=== PATIENT | female | born 1970 | race Caucasian/White ===

== ENCOUNTER → 2019-09-20 15:38 | Outpatient (CLI) | payer OTHER, SELFPAY ==
--- NOTE | 2019-09-20 | DI.MRI.S_ITS ---
PROCEDURE: MR KNEE RT WO CON INDICATIONS: Right knee pain and instability TECHNIQUE: Noncontrast sagittal PD fast spin echo and T2 fast spin echo with fat saturation, sagittal 3-D FLASH with fat saturation; coronal T1 spin echo and PD fast spin echo with fat saturation, and axial PD fast spin echo with fat saturation through the knee. COMPARISON: None. FINDINGS: Image quality: Excellent. Menisci: Medial meniscus intact, although mild fraying of the body. No discrete tear by strict criteria. Lateral meniscus intact. Cruciate ligaments: Anterior cruciate ligament appears intact. Posterior cruciate ligament appears intact. Medial structures: The medial collateral ligament appears intact. Semimembranosus tendon appears intact. Visualized portions of the pes anserinus tendons appear normal. No abnormal bursal fluid. Lateral structures: The lateral collateral ligament intact. Biceps femoris tendon appears intact. Popliteus tendon grossly unremarkable. Iliotibial band appears intact. Anterior structures: Quadriceps tendon intact. Medial and lateral patellofemoral ligaments intact. There is mild patellar tendinopathy. Prepatellar and superficial infrapatellar subcutaneous edema/fluid. Bones and cartilage: No focal marrow contusion or discrete low signal fracture line. Within the medial compartment, diffuse surface fraying of the femoral and tibial cartilage without focal defect Within the lateral compartment, diffuse surface fraying of the femoral and tibial cartilage without focal defect Within the patellofemoral compartment, diffuse partial thickness loss of cartilage overlying the lateral patellar facet in addition to subchondral marrow edema and cystic change. Femoral trochlear cartilage appears grossly intact Joint space: Small joint effusion. The No Rene's cyst. No specific evidence of intra-articular loose body. IMPRESSION: Mild patellar tendinopathy with adjacent soft tissue edema. Degenerative joint disease as above, most pronounced in the patellofemoral compartment where there is subchondral marrow cystic change and edema Small joint effusion. Dictated by: Elias Montes De Oca M.D. on 09/20/2019 at 16:48 Approved by: Elias Montes De Oca M.D. on 09/20/2019 at 16:58
--- NOTE | 2019-09-20 | DI.MRI.S_ITS ---
PROCEDURE: MR KNEE LT WO CON INDICATIONS: Left knee pain and instability TECHNIQUE: Noncontrast sagittal PD fast spin echo and T2 fast spin echo with fat saturation, sagittal 3-D FLASH with fat saturation; coronal T1 spin echo and PD fast spin echo with fat saturation, and axial PD fast spin echo with fat saturation through the knee. COMPARISON: [facility], MR, MR KNEE RT WO CON, 09/20/2019, 15:51. FINDINGS: Image quality: Excellent. Menisci: Medial meniscus intact. Lateral meniscus intact. Cruciate ligaments: Anterior cruciate ligament appears intact although there is mild intrasubstance T2 hyperintensity and thickening raising possibility of low-grade sprain (age indeterminate), versus mucoid degeneration. Posterior cruciate ligament appears intact. Medial structures: The medial collateral ligament appears intact. Semimembranosus tendon appears intact. Mild edema adjacent to the pes anserinus tendons. No abnormal bursal fluid. Lateral structures: The lateral collateral ligament intact. Biceps femoris tendon appears intact. Popliteus tendon grossly unremarkable. Iliotibial band appears intact. Anterior structures: Quadriceps tendon intact. Medial and lateral patellofemoral ligaments intact. Patellar tendon appears intact. Hoffa's fat pad unremarkable. Bones and cartilage: No focal marrow contusion or discrete low signal fracture line. Within the medial compartment, mild diffuse surface fraying of the femoral and tibial articular cartilage without focal defect. Within the lateral compartment, intrasubstance signal change of the central tibial cartilage and mild diffuse surface fraying of the femoral cartilage. No focal defect Within the patellofemoral compartment, with full-thickness fissuring and partial-thickness loss of the cartilage overlying the lateral patellar facet. There is underlying subchondral marrow edema and cystic change. Femoral trochlear cartilage appears grossly intact. Joint space: Small joint effusion. No Rene's cyst. No specific evidence of intra-articular loose body. IMPRESSION: Mild thickening and signal changes of the ACL which appears grossly intact although could reflect mucoid degeneration versus age-indeterminate mild sprain. Patellofemoral chondromalacia. Small joint effusion Mild pes anserinus insertional tendinopathy Dictated by: Elias Montes De Oca M.D. on 09/20/2019 at 16:58 Approved by: Elias Montes De Oca M.D. on 09/20/2019 at 17:11
== END ==
PROVIDERS: Referring Provider Family Medicine; Visit Provider Family Medicine
DX: M25.561 Pain in right knee (principal); M25.562 Pain in left knee; M23.51 Chronic instability of knee, right knee; M23.52 Chronic instability of knee, left knee; M17.11 Unilateral primary osteoarthritis, right knee; M67.961 Unspecified disorder of synovium and tendon, right lower leg; M25.461 Effusion, right knee; M25.462 Effusion, left knee; M22.42 Chondromalacia patellae, left knee
CPT/HCPCS: 73721

== ENCOUNTER → 2020-06-05 14:06 | Outpatient (CLI) | payer OTHER, SELFPAY ==
--- NOTE | 2020-06-05 | DI.MG.S_ITS ---
BILATERAL DIGITAL SCREENING MAMMOGRAM 3D/2D WITH CAD: 06/05/2020 CLINICAL: Routine screening. Family history of breast cancer. Comparison is made to exams dated: 09/28/2018 mammogram, 09/11/2017 mammogram, and 08/15/2017 mammogram - [facility]. The tissue of both breasts is heterogeneously dense. This may lower the sensitivity of mammography. Current study was also evaluated with a Computer Aided Detection (CAD) system. No significant masses, calcifications, or other findings are seen in either breast. There has been no significant interval change. IMPRESSION: NEGATIVE There is no mammographic evidence of malignancy. A 1 year screening mammogram is recommended. This exam was interpreted at Station ID: [id number]. NOTE: For mammograms, a report in lay terms will be sent to the patient. Approximately 15% of breast malignancies will not be visualized mammographically. In the management of a palpable breast mass, a negative mammogram must not discourage biopsy of a clinically suspicious lesion. Electronically Signed By: Rosario mohr/esvin:06/09/2020 10:11:47 letter sent: Normal Exam ACR BI-RADS Category 1: Negative 3341F
== END ==
PROVIDERS: PCP Family Medicine; Referring Provider Family Medicine; Visit Provider Family Medicine
DX: Z12.31 Encounter for screening mammogram for malignant neoplasm of breast (principal); Z80.3 Family history of malignant neoplasm of breast
CPT/HCPCS: 77063; 77067

== ENCOUNTER → 2020-12-04 19:04 | Outpatient (CLI) | payer OTHER, SELFPAY ==
--- NOTE | 2020-12-04 | DI.MRI.S_ITS ---
PROCEDURE: MR HEAD/BRAIN WO CON INDICATIONS: Migraine, unspecified, not intractable, without st TECHNIQUE: Noncontrast axial T1 spin echo, axial T2 fast spin echo, sagittal and axial FLAIR, coronal T2 fast spin echo, axial gradient echo, axial diffusion and ADC through the brain. COMPARISON: None. FINDINGS: Image quality: Excellent. CSF Spaces: Basal cisterns are patent. No extra-axial fluid collections. Ventricles are normal in size and shape. Brain: No intracranial masses or hemorrhage. Kent/white matter interface is normal. Brainstem appears normal. Diffusion-weighted images demonstrate no acute ischemic insult. No chronic ischemic insults. Normal intravascular flow voids are present. Skull and face: Calvarium has normal marrow signal. Orbits appear normal. Sinuses: Sinuses and mastoids are clear. IMPRESSION: 1. No acute intracranial abnormality. 2. No explanation for headache. 3. No acute process. No recent infarct. Dictated by: Lowell Beal M.D. on 12/08/2020 at 9:02 Approved by: Lowell Beal M.D. on 12/08/2020 at 9:02
== END ==
PROVIDERS: PCP Family Medicine; Referring Provider Family Medicine; Visit Provider Family Medicine
DX: G43.909 Migraine, unspecified, not intractable, without status migrainosus (principal); R43.1 Parosmia
CPT/HCPCS: 70551

== ENCOUNTER → 2021-08-14 08:49 | Outpatient (CLI) | payer OTHER, SELFPAY ==
--- NOTE | 2021-08-14 | DI.MG.S_ITS ---
BILATERAL DIGITAL SCREENING MAMMOGRAM 3D/2D WITH CAD: 08/14/2021 CLINICAL: Routine screening. Family history of breast cancer. Comparison is made to exams dated: 06/05/2020 mammogram - [facility], 09/28/2018 mammogram, and 09/11/2017 mammogram - [facility]. The tissue of both breasts is heterogeneously dense. This may lower the sensitivity of mammography. Current study was also evaluated with a Computer Aided Detection (CAD) system. No significant masses, calcifications, or other findings are seen in either breast. There has been no significant interval change. IMPRESSION: NEGATIVE There is no mammographic evidence of malignancy. A 1 year screening mammogram is recommended. This exam was interpreted at Station ID: [id number]. NOTE: For mammograms, a report in lay terms will be sent to the patient. Approximately 15% of breast malignancies will not be visualized mammographically. In the management of a palpable breast mass, a negative mammogram must not discourage biopsy of a clinically suspicious lesion. Electronically Signed By: Hermann Santiago M.D., jr/esvin:08/16/2021 08:57:13 letter sent: Normal Exam ACR BI-RADS Category 1: Negative 3341F
== END ==
PROVIDERS: PCP Family Medicine; Referring Provider Family Medicine; Visit Provider Family Medicine
DX: Z12.31 Encounter for screening mammogram for malignant neoplasm of breast (principal); Z80.3 Family history of malignant neoplasm of breast
CPT/HCPCS: 77063; 77067

== ENCOUNTER → 2021-12-22 13:27 | Outpatient (CLI) | payer OTHER, SELFPAY ==
[2021-12-22 15:30] LABS: COVID19 -Nasal RAPID Negative (Negative)
== END ==
PROVIDERS: PCP Family Medicine; Visit Provider Surgery
DX: Z20.822 Contact with and (suspected) exposure to COVID-19 (principal); Z01.812 Encounter for preprocedural laboratory examination
CPT/HCPCS: 87635; C9803

== ENCOUNTER 2021-12-23 11:57 | Day surgery (SDC) | payer OTHER, SELFPAY ==
--- NOTE | 2021-12-23 | PATH_ITS ---
[facility] Accession Number: [id number] No. of containers..01 Tissue . 01 Material submitted: . cecum - CECAL POLYPS . 01 Clinical history: . [facility] [place] FOR MALIGNANT NEOPLASM . 01 Diagnosis: Cecal Polyps, Biopsies: Sessile serrated adenoma x1. Colonic mucosa with prominent benign lymphoid aggregate x1. MRV 12/28/2021 1143 Local . 01 Electronically signed: . Jon Luis MD, PhD, Pathologist NPI- [id number] . 01 Gross description: . CECAL POLYPS: Received in formalin are 2 fragment(s) of yates, soft tissue measuring 0.1 x 0.1 x 0.1 cm to 0.6 x 0.2 x 0.2 cm submitted entirely in 1 cassette(s) /ANKIT 12/24/20212033 Local . 01 Pathologist provided ICD-10: D12.0 . 01 CPT . 703509 Specimen Comment: A courtesy copy of this report has been sent to [phone] Performed at: 01 [facility] [address] [place] [address] [address], [place], [place] [id number] MD Trenton Quiroz MD Phone: [phone]
[2021-12-23 12:24] VITALS: BP 128/80; PULSE 108; RESP 18; TEMP 36.6; O2SAT 96
[2021-12-23 12:25] VITALS: BMI 32.5
[2021-12-23] MEDS: LACTATED RINGERS 1,000 ML 84 ML IV (12:45)
--- NOTE | 2021-12-23 13:22 | PM.HP.1 ---
History of Present Illness History of Present Illness Date Patient Seen: 12/23/21 Time Patient Seen: 13:22 Chief complaint: SDC Narrative: 51-year-old woman for a screening colonoscopy. She has never had 1 before. She reports irregular bowel function alternating between constipation and watery bowel. No known family history of colon cancer. Patient History Medical History (Updated 12/23/21 @ 13:23 by Gen Okeefe MD) Seasonal allergic rhinitis Sleep apnea Surgical History (Updated 12/23/21 @ 13:00 by Shandra Felix RN) History of eye surgery Hx of appendectomy Family & Social History Social History: household members none Tobacco & Substance use: Smoking Status Current every day smoker Smoking packs per day 5 alcohol intake current alcohol intake frequency holiday/special occasion Substance Use Type does not use Meds Home Medications and Allergies Home Medications Medication Instructions Recorded Confirmed Type cetirizine 10 mg tablet 1 tab PO DAILY 12/23/21 12/23/21 History loratadine 10 mg tablet 1 tab PO DAILY 12/23/21 12/23/21 History pantoprazole 40 mg tablet,delayed 1 tab PO DAILY 12/23/21 12/23/21 History release Allergies Allergy/AdvReac Type Severity Reaction Status Date / Time meperidine [From Demerol] AdvReac Unknown ITCHING Verified 12/23/21 12:20 Exam Vital Signs (past 8 hours): - 12/23/21 12:24 Temperature 97.8 F Pulse Rate 108 H Respiratory Rate 18 Blood Pressure 128/80 Pulse Oximetry 96 Oxygen Delivery Method Room Air Oxygen Delivery Method Room Air Const General: No acute distress Resp Effort & Inspection: normal respiratory effort Assessment & Plan Assessment and plan (1) Colon cancer screening: Status: Acute Plan 51-year-old woman here for colonoscopy for colon cancer screening. We reviewed the risks and benefits and she would like to proceed. COVID-19 COVID-19 status: Negative Result date/Date tested (Pos, Neg/Pending): 12/22/21 Time Spent With Patient Critical Care time: I spent a total of [] minutes of critical care time on this patient's care today; this time is exclusive of procedural time.
[2021-12-23] MEDS: MIDAZOLAM 5 MG/5 ML VIAL 11 MG IV (14:01)
[2021-12-23] MEDS: fentaNYL 250 MCG/5 ML INJ IV (14:01)
--- NOTE | 2021-12-23 14:17 | PM.OP.COLON ---
Operative Date/Time/Diagnoses Date of procedure: 12/23/21 Time of procedure: 14:17 Pre-op diagnosis: Colon cancer screening Post-op diagnosis: same Procedure & Clinicians Study performed: Colonoscopy Same procedure as scheduled: Yes Surgeon: Gen Okeefe Procedure Notes Procedure in detail: Surgeon: Gen Okeefe MD Procedure: The patient was brought to the endoscopy suite, placed in left lateral decubitus position. The patient was connected to monitoring devices. A time-out was performed. Sedation was administered. Once the patient was adequately sedated, a digital rectal exam was performed and was normal. The scope was then inserted and advanced to the cecum where the appendiceal orifice was identified and photographed. The scope was then slowly withdrawn over greater than 6 minutes. The mucosa was thoroughly inspected. There were 2 small polyps in the cecum removed with cold forceps. The scope was retroflexed in the rectum. No other abnormalities were noted. The scope was straightened and removed. The patient was awakened and brought to recovery. Versed: 11 mg Fentanyl: 250 mcg EBL: 2 mL Findings: 2 very small polyps in the cecum Scope withdrawal time: 13 Sedation minutes: 27 Post-procedure Recommendations: Will call with biopsy results Disposition: PACU
[2021-12-23 14:21] VITALS: BP 131/84; PULSE 99; RESP 16; TEMP 36.6; O2SAT 95
[2021-12-23 14:26] VITALS: BP 131/84; PULSE 97; RESP 14; O2SAT 98
[2021-12-23 14:31] VITALS: BP 129/89; PULSE 96; RESP 18; O2SAT 96
[2021-12-23 14:47] VITALS: BP 107/76; PULSE 88; RESP 16; TEMP 36.2; O2SAT 98
== END 2021-12-23 14:55 | disposition home or self-care (01) ==
PROVIDERS: PCP Family Medicine; Referring Provider Surgery; Visit Provider Surgery
PROC: 0DJD8ZZ Inspection of Lower Intestinal Tract, Via Natural or Artificial Opening Endoscopic (ICD-10-PCS; CPT 45378; principal; 2021-12-23 13:00)
DX: Z12.11 Encounter for screening for malignant neoplasm of colon (principal); G47.30 Sleep apnea, unspecified; F17.210 Nicotine dependence, cigarettes, uncomplicated; D12.0 Benign neoplasm of cecum
CPT/HCPCS: 45380; 81025; 99152; 99153; J2250; J3010

== ENCOUNTER → 2024-10-17 06:42 | Outpatient (CLI) | payer OTHER, SELFPAY ==
--- NOTE | 2024-10-17 06:43 | DI.ECHO.S_ITS ---
[facility] : : [address] : : [place] : : [address] : : Phone: [phone] Echocardiogram Report + + :Name: GABRIELA SALAS Study Date: 10/17/2024 Height: 69 in : :[facility] ReadingLocation: Weight: 236 lb : : Gender: Female BSA: 2.2 m2 : :: 1970 Age: 54 yrs BP: 145/95 mmHg: :Reason For Study: DYPSNEA : :Ordering Physician: MUNA, : :ALBA Kyle Performed By: Hermann Garza : :Referring: ALBA TORO : + + Interpretation Summary Mild concentric left ventricular hypertrophy with ejection fraction 60-65%. No valvular abnormality. Procedure: A two-dimensional transthoracic echocardiogram with color flow and Doppler was performed. The study quality was technically good. There is no prior echocardiogram noted for this patient. The patient was in normal sinus rhythm during the exam. The patient had occasional PVCs during the exam. Left Ventricle: The left ventricle is normal in size. There is mild concentric left ventricular hypertrophy. There is no ventricular septal defect visualized. The ejection fraction is estimated to be 60-65%. There are no focal wall motion abnormalities. Diastolic parameters suggest probable normal left ventricular diastolic function and normal filling pressures. Right Ventricle: The right ventricle is normal in size and function. Atria: The left atrial size is normal. Right atrial size is normal. There is no Doppler evidence for an interatrial shunt. Mitral Valve: The mitral valve leaflets appear normal. There is no evidence of stenosis, fluttering, or prolapse. There is trace mitral regurgitation. Aortic Valve: The aortic valve is trileaflet. The aortic valve opens well. No aortic regurgitation is present. Tricuspid Valve: The tricuspid valve leaflets are thin and pliable. There is a trace or physiologic amount of tricuspid regurgitation. Pulmonic Valve: The pulmonic valve leaflets are thin and pliable; valve motion is normal. There is no pulmonic valvular regurgitation. Great Vessels: The aortic root is normal size. The dimensions of the ascending aorta are normal. The pulmonary artery is normal size. The IVC is of normal diameter and collapses greater than 50% with a sniff. This suggests a low right atrial pressure of 3 mm Hg. Pericardium/ Pleura There is no pericardial effusion. There is no pleural effusion. MMode/2D Measurements & Calculations LVIDd: 3.8 cm LVOT diam: 1.9 cm LVIDs: 2.7 cm Ao root diam: 2.9 cm FS: 29.0 % asc Aorta Diam: 2.7 cm EPSS: 0.74 cm Ao Arch Diam (Prox Trans): 1.8 cm IVSd: 1.1 cm LVPWd: 1.1 cm LV del castillo. diameter/BSA (cm/m^2): 1.7 LV sys. diameter/BSA (cm/m^2): 1.2 LA A2 area: 15.1 cm2 RA long axis: 4.2 cm LA A4 area: 18.1 cm2 RA area: 13.1 cm2 LA length (vol): 4.9 cm RA vol: 34.4 ml LA vol: 47.2 ml RA : 15.5 ml/m2 LA vol index: 21.3 ml/m2 IVC diam: 1.5 cm RVD1 (basal): 3.2 cm RVD2 (mid): 2.7 cm TAPSE: 2.4 cm Doppler Measurements & Calculations Ao V2 max: 154.0 cm/sec LVOT Max Crispin: 130.7 cm/sec Ao V2 mean: 103.7 cm/sec LV V1 max P.8 mmHg Ao max P.5 mmHg LV V1 VTI: 28.9 cm Ao mean P.8 mmHg KALEY(I,D): 2.7 cm2 Ao V2 VTI: 29.6 cm KALEY(V,D): 2.4 cm2 sev ratio: 0.98 KALEY indexed to BSA (cm^2/m^2): 1.2 MV E max crispin: 77.2 cm/sec PA V2 max: 83.5 cm/sec MV A max crispin: 86.7 cm/sec PA V2 mean: 56.8 cm/sec MV E/A: 0.89 PA mean P.4 mmHg Med Peak E' Crispin: 9.2 cm/sec PA pr(Accel): 13.9 mmHg E/E' med: 8.4 Lat Peak E' Crispin: 9.8 cm/sec E/E' lat: 7.9 E/e' average: 8.1 MV dec time: 0.15 sec SV(LVOT): 81.1 ml Electronically signed by: Emi Iverson on Reading Physician:10/18/2024 08:30 AM
== END ==
PROVIDERS: PCP Family Medicine; Referring Provider Family Medicine; Visit Provider Family Medicine
DX: R06.00 Dyspnea, unspecified (principal)
CPT/HCPCS: 93306

== ENCOUNTER → 2024-11-12 06:29 | Outpatient (CLI) | payer OTHER, SELFPAY ==
--- NOTE | 2024-11-12 | DI.US.S_ITS ---
PROCEDURE: US THYROID INDICATIONS: THYROID ENLARGEMENT DIFFUSE SENSE OF NECK SWELLING TECHNIQUE: Real-time scanning was performed of the thyroid gland, with image documentation. COMPARISON: None. FINDINGS: Thyroid: Right lobe measures 6.1 x 2.2 x 2.7 cm. Left lobe measures 5.7 x 1.6 x 1.8 cm. Isthmus is 0.3 cm thick. Echotexture is homogeneous. Nodule number: 1 Location: Right mid/anterior Size: 1.8 x 1.1 x 1.7 cm. Composition: Spongiform Echogenicity: Isoechoic Shape: wider than tall. Margins: Smooth Echogenic foci: None Total points: 1 ACR TI-RADS category: Benign Nodule number: 2 Location: Right mid/posterior Size: 2.3 x 1.0 x 1.4 cm. Composition: Solid Echogenicity: Hypoechoic Shape: wider than tall. Margins: Smooth Echogenic foci: None Total points: 4 ACR TI-RADS category: 4, moderately suspicious IMPRESSION: Right thyroid nodule measuring 2.3 cm qualifies for fine-needle aspiration. ACR TI-RADS definitions and recommendations: TI-RADS 1 (benign): 0 points. FNA not needed. TI-RADS 2 (not suspicious): 2 points. FNA not needed. TI-RADS 3: 3 points. * FNA if 2.5 cm or larger, follow up if 1.5 cm or larger (at 1, 3, and 5 years). TI-RADS 4: 4-6 points. * FNA if 1.5 cm or larger, follow up if 1 cm or larger (at 1, 2, 3, and 5 years). TI-RADS 5: 7 points or more. * FNA if 1 cm or larger, follow up if 0.5 cm or larger (every year for 5 years). Dictated by: Bertram Thompson M.D. on 11/12/2024 at 10:19 Approved by: Bertram Thompson M.D. on 11/12/2024 at 10:27
== END ==
LOC: US 06:29
PROVIDERS: PCP Family Medicine; Referring Provider Family Medicine; Visit Provider Family Medicine
DX: E04.2 Nontoxic multinodular goiter (principal)
CPT/HCPCS: 76536

== ENCOUNTER → 2024-11-25 14:24 | Outpatient (CLI) | payer OTHER, SELFPAY ==
--- NOTE | 2024-11-25 | PATH_ITS ---
Note [facility] Accession Number: [id number] TESTS RESULT FLAG UNITS REF RANGE LAB Clinician Provided Cytology Information No. of containers..02 Previously Prepared Cytology Slide 35 Unknown Storage/container code(s) Source: RIGHT THYROID NODULE #1 DIAGNOSIS: RIGHT THYROID NODULE #1 NEGATIVE FOR MALIGNANT CELLS. BETHESDA CATEGORY II. SPECIMEN CONSISTS OF BENIGN FOLLICULAR CELLS, HEMOSIDERIN-LADEN MACROPHAGES, COLLOID, AND BLOOD. THIS PATTERN IS CONSISTENT WITH FOLLICULAR NODULAR DISEASE. Pathologist ICD10: 01 E04.1 Signed out by: Lilli Bradley DO, Pathologist NPI- [id number] Performed by: Donny Colbert, Body Fitter ([facility]) Gross description: 30 CC, COLORLESS, CLEAR RECIEVED: IN CYTOLYT WITH 6 ALCOHOL FIXED AND 6 QUICK STAINED SLIDES ALSO 1 RNA VIAL WILL ON 03-04-2029.VO /VDU 11/26/2024 0727 Local FLAG LEGEND: L-Low Normal,H-High Normal,LL-Alert Low,HH-Alert High <-Panic Low,>-Panic High,A-Abnormal,AA-Critical Abnormal Performed at: 01 =[facility] [facility], [place] [address] Trenton Quiroz MD, Performed at: [address] [facility], [place], [place] [id number] MD Trenton Quiroz MD Phone: [phone]
--- NOTE | 2024-11-25 14:25 | DI.US.S_ITS ---
PROCEDURE: US FINE NEEDLE ASPIRATION INDICATIONS: RIGHT THYROID NODULE TECHNIQUE: The indications, alternatives, benefits, risks, and complications of the procedure were explained to the patient. Written informed consent was obtained and placed in the chart. The thyroid region was examined sonographically and a site was chosen for ultrasound guided percutaneous sampling. The skin was prepared and draped in the usual fashion, and anesthetized with 1% lidocaine infiltrated from the skin down to the thyroid gland. Multiple passes were then performed, with contents emptied into an appropriate pathology specimen container. A bandage was applied to the area of access at completion of the study. COMPARISON: [facility], US, US THYROID, 11/12/2024, 6:46. FINDINGS: Location(s) of lesion(s) sampled: Right thyroid 1.8 cm nodule (noted to be hypoechoic with internal echogenic foci at the time of preprocedural scanning and deemed to be TR4); the thyroid ultrasound posterior nodule identified on the 11/12/2024 thyroid ultrasound was not amenable to biopsy due to its deep, posterior location and proximity to neurovascular structures [place]: 25 gauge hypodermic needles. Number of passes: 6 Medications: 1% lidocaine for local anaesthesia. Complications: None. IMPRESSION: 1. Successful ultrasound-guided thyroid nodule fine needle aspiration of the 1.8 cm right mid anterior thyroid nodule, with cytology results pending. Please see chart below for management recommendations based on cytology results. 2. Regarding the right posterior 2.3 cm thyroid nodule, consider a follow-up thyroid ultrasound in 1 year. If there is a change in size or sonographic characteristics, an FNA biopsy could be reconsidered. [place] [facility] ReportingRecommendationsNon-diagnostic* Repeat US-guided FNA, with on-site cytology evaluation if possible. * Repeated non-diagnostic nodules without high suspicion US features: close observation vs surgical consult. * Consider surgery if nodule has high suspicion US features, grows >20% in 2 dimensions on followup, or patient has clinical risk factors for malignancy. Benign* If nodule has high suspicion US features: repeat US and FNA within 12 months. * If nodule has low to intermediate suspicion US features: repeat US at 12-24 months. If nodule grows (20% increase in at least 2 dimensions, with minimal increase of 2 mm or >50% change in volume), or development of new suspicious US features, then repeat FNA or continue followup. * If nodule has very low suspicion US features: followup US at >24 months. Atypia of undetermined significance, follicular lesion of undetermined significanceRepeat FNA, molecular testing, followup US, or surgical consult.Follicular neoplasm, suspicious for follicular neoplasmSurgical consult; also consider molecular testing. Suspicious for malignancySurgical consult.MalignantSurgical consult. Dictated by: Zachary Arevalo M.D. on 11/26/2024 at 10:38 Approved by: Zachary Arevalo M.D. on 11/26/2024 at 10:43
== END ==
PROVIDERS: PCP Family Medicine; Referring Provider Family Medicine; Visit Provider Family Medicine
DX: E04.9 Nontoxic goiter, unspecified (principal)
CPT/HCPCS: 10005

== ENCOUNTER → 2024-12-18 07:59 | Outpatient (CLI) | payer OTHER, SELFPAY ==
--- NOTE | 2024-12-18 08:01 | DI.NM.S_ITS ---
PROCEDURE: NM EXERCISE TREADMILL NON NUC COMPARISON: None. INDICATIONS: Tachycardia FINDINGS: Rest ECG sinus rhythm 75 bpm. Titi protocol 8:00, maximum heart rate 184 bpm (110% peak predicted), peak blood pressure 171/90, 10.1 METS, EUNICE -5%. Exercise ECG sinus tachycardia, no ST segment changes or arrhythmia. The patient did not report exercise-induced chest discomfort. IMPRESSION: Low risk study. No evidence of exercise-induced ischemia or arrhythmia. Accelerated heart rate response. Normal blood pressure response. Normal exercise capacity. Dictated by: Maris Green D.O. on 12/18/2024 at 16:08 Approved by: Maris Green D.O. on 12/18/2024 at 16:12
== END ==
LOC: NUCM 08:00
PROVIDERS: PCP Family Medicine; Referring Provider Internal Medicine Cardiovascular Disease; Visit Provider Internal Medicine Cardiovascular Disease
DX: R00.0 Tachycardia, unspecified (principal); G47.33 Obstructive sleep apnea (adult) (pediatric); E66.811 Obesity, class 1; E66.09 Other obesity due to excess calories; Z68.33 Body mass index [BMI] 33.0-33.9, adult
CPT/HCPCS: 93017

== ENCOUNTER → 2025-02-07 08:32 | Outpatient (CLI) | payer OTHER, SELFPAY ==
--- NOTE | 2025-02-07 08:33 | DI.MG.S_ITS ---
MM diagnostic mammo unilat LT: 02/07/2025. BI-RADS: 1 CLINICAL: 54-year old female for left diagnostic mammogram. Tyrer-Cuzick lifetime risk of 15.4%. No personal or first-degree family history of breast cancer. The patient presents for additional evaluation of an inconclusive screening mammogram. PRIOR EXAMS Outside films 01/08/2025, 01/01/2024, 09/13/2022, 08/14/2021, MAMMOGRAPHY TECHNIQUE: 2D and 3D (tomosynthesis) digital mammographic views obtained, with additional images as needed for full coverage. Current study was also evaluated with a Computer Aided Detection (CAD) system. DENSITY Left: C. The breast is heterogeneously dense, which may obscure small masses. MAMMOGRAPHY FINDINGS Left: Upper Outer Quadrant, Middle depth: The focal asymmetry seen on recent screening mammogram did not persist with additional imaging and is consistent with superimposition of normal breast tissue. No suspicious mass, asymmetry, microcalcification, or other abnormality seen. IMPRESSION: Left * No evidence of malignancy. RECOMMENDATIONS Bilateral * Annual screening mammography. COMMENTS: Findings and recommendations were conveyed to the patient during today's evaluation. OVERALL ASSESSMENT CATEGORY BI-RADS-1: Negative. The [employer] recommends annual screening mammography beginning at age 40 for women with average risk of breast cancer. ELECTRONICALLY SIGNED: Alyx Little M.D. on 02/07/2025 at 11:18:39 AM PT Interpreting Station ID: [id number]
== END ==
LOC: MAMMO 08:33
PROVIDERS: PCP Family Medicine; Referring Provider Family Medicine; Visit Provider Family Medicine
DX: R92.8 Other abnormal and inconclusive findings on diagnostic imaging of breast (principal); R92.332 Mammographic heterogeneous density, left breast
CPT/HCPCS: 77065; G0279